=== PATIENT | female | born 1955 | race Caucasian/White ===

== ENCOUNTER → 2017-02-13 | Outpatient (CLI) | payer OTHER ==
--- NOTE | 2017-02-13 18:41 | WOMENS IMAGING REPORT ---
EXAM DESCRIPTION: BILAT SCREENING MAMMO W/CAD COMPLETED DATE/TIME: 02/13/2017 9:49 am REASON FOR STUDY: ROUTINE SCREENING; Z12.31 Z12.31 ENCNTR SCREEN MAMMOGRAM FOR MALIGNANT NEOPLASM O F MARK COMPARISON: None. TECHNIQUE: Standard craniocaudal and mediolateral oblique views of each breast recorded using digita l acquisition. LIMITATIONS: None. FINDINGS: No masses, calcifications or architectural distortion. No areas of suspicion. Read with the assistance of CAD. .[facility] - R2 Cenova Version 1.3 .[facility] - R2 Cenova Version 1.3 .[facility] - R2 Cenova Version 2.4 .[facility] - R2 Cenova Version 2.4 .[facility] - R2 Carbide Grinder Version 9.2 IMPRESSION: NORMAL MAMMOGRAM. BIRADS 1. BREAST DENSITY: b. There are scattered areas of fibroglandular density. BIRAD: 1 NEGATIVE RECOMMENDATION: ROUTINE SCREENING Please consider bilateral screening tomosynthesis in January 2018 COMMENT: The patient has been notified of the results by letter per MQSA requirements. Additional no tification policies are in place for contacting patient with suspicious or incomplete findings. Quality ID #[id number]: The [employer] recommends an annual screening mammogram for women aged 40 years or over. This facility utilizes a reminder system to ensure that all patients receive reminder letters, and/or direct phone calls for appointments. This includes reminders for routine scr eening mammograms, diagnostic mammograms, or other Breast Imaging Interventions when appropriate. Th is patient will be placed in the appropriate reminder system. The [employer] (A[employer]) has developed recommendations for screening MRI of the breast s in certain patient populations, to be used in conjunction with mammography. Breast MRI surveillanc e may be appropriate for women with more than 20% lifetime risk of developing breast cancer as deter mined by genetic testing, significant family history of the disease, or history of mantle radiation f or Hodgkins Disease. ACR Practice Guidelines 2008. TECHNICAL DOCUMENTATION: FINDING NUMBER: (1) ASSESSMENT: (1) JOB ID: [id number] [employer]- All Rights Reserved
== END ==
LOC: WI 09:33
PROVIDERS: ATTEND Family Medicine
DX: Z12.31 Encounter for screening mammogram for malignant neoplasm of breast (principal)
CPT/HCPCS: 77067; G0202

== ENCOUNTER 2017-05-12 16:51 | Emergency (ER) | payer OTHER ==
[2017-05-12] MEDS ORDERED: HYDROCODONE/ACETAMINOPHEN 5-325 MG TABLET PO ONE (18:33)
--- NOTE | 2017-05-12 18:37 | ER Document Report ---
ED Fall - General Chief Complaint: Fall Stated Complaint: FALL/LEFT ARM PAIN Time Seen by Provider: 05/12/17 18:25 Mode of Arrival: Ambulatory Information source: Patient TRAVEL OUTSIDE OF THE [place] IN LAST 30 DAYS: No - HPI Occurred: This afternoon Where: Outdoors Context: Tripped Associated symptoms: None Location of injury/pain: Back, Elbow, Wrist Quality of pain: Achy Severity: Moderate Notes: Patient arrives with complaints of left elbow and wrist pain as well as back pain status post fall. She states that she was walking she tripped over an uneven sidewalk causing her to fall. She states that she struck her head, denies any loss of consciousness. She denies headache. She denies being on blood thinners. Her biggest complaint is left elbow and left wrist pain. She denies any bowel or bladder dysfunction. No chest pain or shortness of breath. No nausea, vomiting, diarrhea. No abdominal pain. She denies any numbness or tingling. She denies any other injuries or other complaints at this time. - Related data Allergies/Adverse Reactions: Sulfa (Sulfonamide Antibiotics) Allergy (Unknown, Verified 05/12/17 16:54) Penicillins Allergy (Verified 05/12/17 16:54) Past Medical History - Social History Smoking Status: Unknown if Ever Smoked Family History: CAD, CVA, DM, Hyperlipidemia, Hypertension, Malignancy - Past Medical History Cardiac Medical History: Reports: Hx Hypercholesterolemia Neurological Medical History: Reports: Hx Migraine Endocrine Medical History: Reports: Hx Diabetes Mellitus Type 2 Musculoskeltal Medical History: Reports Hx Arthritis, Reports Hx Musculoskeletal Deformity, Reports Hx Musculoskeletal Trauma Traumatic Medical History: Reports: Hx Fractures - left ankle Past Surgical History: Reports: Hx Appendectomy, Hx Cholecystectomy, Hx Hysterectomy, Hx Orthopedic Surgery - left ankle left shoulder - Immunizations Immunizations up to date: Yes Hx Diphtheria, Pertussis, Tetanus Vaccination: Yes Hx Pneumococcal Vaccination: 04/24/11 Review of Systems - Review of Systems -: Yes All other systems reviewed and negative Physical Exam - Vital signs Vitals: Temp Pulse Resp BP Pulse Ox 97.8 F 106 H 18 158/77 H 97 05/12/17 17:37 05/12/17 17:37 05/12/17 17:37 05/12/17 17:37 05/12/17 17:37 - Notes Notes: GENERAL: alert, cooperative, nontoxic, no distress. HEAD: normocephalic, atraumatic EYES: conjunctiva pink without discharge, no external redness or swelling. PERRL , EOM'S INTACT EARS: no external swelling, no external redness. No hemotympanum EM NOSE: atraumatic, no external swelling. No bleeding MOUTH/THROAT: mucous membranes moist and pink, posterior pharynx without erythema, swelling, exudate. No trismus or drooling. NECK: soft, supple, full range of motion, no meningismus. No midline tenderness step-offs or crepitus to palpation of the cervical spine. CHEST: no distress, lungs clear and equal throughout. No wheezing, rales, rhonchi. CARDIAC: regular rate and rhythm, no murmur, normal capillary refill, normal pulses. No peripheral edema noted. ABDOMEN: Soft, nontender. No ecchymosis. BACK: full range of motion, no CVA tenderness. No midline tenderness step-offs or crepitus to palpation of the lumbar spine. Mild midline tenderness to palpation of the thoracic midline spine with no step-offs or crepitus. EXTREMITIES: Swelling and tenderness to the left elbow with limited flexion and extension secondary to pain and swelling. Tenderness and swelling to the left wrist with limited range of motion secondary to pain. Radial pulses normal. Capillary refill is normal. Normal sensation distally. Compartments are soft. Left shoulder exam is unremarkable. Abrasions noted to the left elbow. NEURO: alert and oriented x 3, no focal deficits, full range of motion of all extremities. Cranial nerves II through XII are grossly intact. Reflexes are normal bilaterally. Normal sensation bilaterally. Normal strength bilaterally. PYSCH: appropriate mood, affect. Patient is cooperative. SKIN: pink, warm, dry, no rash. Course - Re-evaluation Re-evalutation: 05/12/17 19:19 Patient is nontoxic appearing with stable vitals. The patient tripped and fell injuring her left wrist and elbow. She mildly struck her head, there was no loss of consciousness she is on no blood thinners and has a normal neurological exam. No CT imaging is required at this time. X-rays of her thoracic spine show no acute abnormality per the radiologist. X-rays of the left elbow and left wrist show an olecranon fracture as well as a comminuted impacted left distal radius fracture. Patient is neurovascularly intact. Compartments are soft. Patient will be placed in a long-arm posterior splint with a sling. She will be given a prescription for [place] with instructions to follow-up with OrthO sometime next week. She will instructed to follow-up sooner for increased pain, fever, numbness, tingling, weakness, any further concerns. The patient's emergency department workup and current diagnosis were explained to the patient and or family. Follow-up instructions were provided. Medications if prescribed were discussed. Instructions for when to return to the emergency department including specific worrisome symptoms were discussed with the patient and/or family. The patient is noted to have elevated blood pressure during today's emergency department visit. The patient was informed of this finding. The patient was instructed that this may be related to pre-hypertension and requires further evaluation with a primary care provider. The patient has no hypertensive symptoms at this time. - Vital Signs Vital signs: Temp Pulse Resp BP Pulse Ox 97.8 F 106 H 18 158/77 H 97 05/12/17 17:37 05/12/17 17:37 05/12/17 17:37 05/12/17 17:37 05/12/17 17:37 - Diagnostic Test Radiology reviewed: Image reviewed, Reports reviewed - Thoracic spine with no acute abnormality. Left elbow with olecranon fracture. Left wrist with comminuted impacted distal radius fracture. Procedures - Immobilization left arm Pre-Proc Neuro Vasc Exam: Normal Immobilizer type: Long arm posterior, Sling Performed by: PCT Post-Proc Neuro Vasc Exam: Normal Alignment checked and good: Yes Discharge - Discharge Clinical Impression: Fracture of olecranon process, left, closed Qualifiers: Encounter type: initial encounter Qualified Code(s): S52.022A - Displaced fracture of olecranon process without intraarticular extension of left ulna, initial encounter for closed fracture Closed fracture of distal end of left radius Qualifiers: Encounter type: initial encounter Fracture morphology: unspecified fracture morphology Qualified Code(s): S52.502A - Unspecified fracture of the lower end of left radius, initial encounter for closed fracture Condition: Stable Disposition: HOME, SELF-CARE Instructions: Fractured Radius ([facility]) Additional Instructions: Take medications as prescribed. Wear splint and use sling until follow-up with Ortho. Rest, ice, elevate your injury. Appointment with orthopedics at the next available appointment. Follow-up sooner for increased pain, fever, numbness, tingling, weakness, any further concerns. The medication you were prescribed today may cause drowsiness. Do not drive or operate heavy machinery while taking this medication. Your blood pressure was elevated during today's visit. Have this rechecked with your doctor. Prescriptions: Hydrocodone/Acetaminophen [[place] 5-325 mg Tablet] 2 tab PO Q6H PRN #25 tab PRN Reason: Forms: Elevated Blood Pressure, Smoking Cessation Education Referrals: WHITNEY JUNIOR DO [Primary Care Provider] - Follow up as needed DEANGELO JACOBSON MD [ACTIVE STAFF] - Follow up as needed
--- NOTE | 2017-05-12 19:00 | RADIOLOGY REPORT (SQ) ---
EXAM DESCRIPTION: T SPINE AP/LAT COMPLETED DATE/TIME: 05/12/2017 6:34 pm REASON FOR STUDY: fall, pain COMPARISON: None. NUMBER OF VIEWS: Two views. TECHNIQUE: AP and lateral radiographic images acquired of the thoracic spine. LIMITATIONS: None. FINDINGS: MINERALIZATION: Normal. ALIGNMENT: Normal. No scoliosis. VERTEBRAE: No fracture or bone lesion. Maintained height, normal segmentation. DISCS: Multilevel disc space narrowing with osteophytes. HARDWARE: None in the spine. MEDIASTINUM AND SOFT TISSUES: Normal heart size and aortic contour. No soft tissue abnormality. VISUALIZED LUNG CHAVARRIA: Clear. OTHER: No other significant finding. IMPRESSION: SPONDYLOSIS WITHOUT BONE LESION OR FRACTURE. TECHNICAL DOCUMENTATION: JOB ID: [id number] [employer]- All Rights Reserved
--- NOTE | 2017-05-12 19:01 | RADIOLOGY REPORT (SQ) ---
EXAM DESCRIPTION: WRIST LEFT 3 VIEWS COMPLETED DATE/TIME: 05/12/2017 6:54 pm REASON FOR STUDY: fall, pain COMPARISON: None. NUMBER OF VIEWS: Three views. TECHNIQUE: AP, lateral, and oblique radiographic images acquired of the left wrist. LIMITATIONS: None. FINDINGS: MINERALIZATION: Osteopenia. BONES: Comminuted intra-articular fracture of the distal radius with mild impaction and dorsal angula tion. Bones otherwise intact. SOFT TISSUES: No soft tissue swelling. No foreign body. OTHER: No other significant finding. IMPRESSION: INTRA-ARTICULAR DISTAL RADIAL FRACTURE ABOVE. TECHNICAL DOCUMENTATION: JOB ID: [id number] [employer]- All Rights Reserved
--- NOTE | 2017-05-12 19:02 | RADIOLOGY REPORT (SQ) ---
EXAM DESCRIPTION: ELBOW LEFT OVER 2 VIEWS COMPLETED DATE/TIME: 05/12/2017 6:54 pm REASON FOR STUDY: fall, pain COMPARISON: None. NUMBER OF VIEWS: Four views. TECHNIQUE: AP, lateral, and both oblique radiographic images acquired of the left elbow. LIMITATIONS: None. FINDINGS: MINERALIZATION: Osteopenia. BONES: Comminuted mildly displaced fracture of the olecranon. Bones otherwise appear to be intact JOINT: Joint effusion. SOFT TISSUES: Soft tissue swelling. OTHER: No other significant finding. IMPRESSION: OLECRANON FRACTURE WITH ASSOCIATED SOFT TISSUE SWELLING AND JOINT EFFUSION. TECHNICAL DOCUMENTATION: JOB ID: [id number] [employer]- All Rights Reserved
[2017-05-12 19:58] VITALS: BP 124/65
== END 2017-05-12 19:56 | disposition home or self-care (01) ==
LOC: ER 16:51
PROC: 2W39X1Z Immobilization of Left Upper Extremity using Splint (ICD-10-PCS; principal; 2017-05-12)
DX: S52.022A Displaced fracture of olecranon process without intraarticular extension of left ulna, initial encounter for closed fracture (principal); S52.502A Unspecified fracture of the lower end of left radius, initial encounter for closed fracture; W01.0XXA Fall on same level from slipping, tripping and stumbling without subsequent striking against object, initial encounter; Z88.2 Allergy status to sulfonamides; Z88.0 Allergy status to penicillin; E78.00 Pure hypercholesterolemia, unspecified; E11.9 Type 2 diabetes mellitus without complications; Z90.49 Acquired absence of other specified parts of digestive tract; Z90.710 Acquired absence of both cervix and uterus
CPT/HCPCS: 72070; 99283

== ENCOUNTER 2017-05-18 09:52 | Observation (INO) | payer OTHER ==
[2017-05-17 11:11] LABS: APPEARANCE,URINE CLEAR; BILIRUBIN,URINE NEGATIVE (NEGATIVE); COLOR,URINE STRAW; GLUCOSE, URINE >=500 mg/dL (NEGATIVE); KETONES,URINE NEGATIVE (NEGATIVE); LEUKOCYTE ESTERASE,URINE NEGATIVE (NEGATIVE); NITRITE,URINE NEGATIVE (NEGATIVE); PROTEIN,URINE NEGATIVE (NEGATIVE); URINE SPECIFIC GRAVITY 1.029; UROBILINOGEN,URINE NEGATIVE mg/dL (<2.0)
[2017-05-17 11:30] LABS: ABSOLUTE EOSINOPHILS # (AUTO) 0.1 10^3/uL (0.0-0.6); ABSOLUTE LYMPHOCYTES (AUTO) 1.3 10^3/uL (0.5-4.7); ABSOLUTE MONOCYTES (AUTO) 0.3 10^3/uL (0.1-1.4); ABSOLUTE NEUT (AUTO) 5.5 10^3/uL (1.7-8.2); BASOPHILS % (AUTO) 0.5 % (0-2); HEMATOCRIT 39.4 % (36.0-47.0); HEMOGLOBIN 12.8 g/dL (12.0-15.5); LYMPHOCYTES % (AUTO) 17.6 % (13-45); MEAN CORPUSCULAR HGB CONC 32.5 g/dL (32.0-36.0); MEAN CORPUSCULAR VOLUME 89 fl (80-97); PLATELET COUNT 344 10^3/uL (150-450); RED BLOOD COUNT 4.41 10^6/uL (3.72-5.28); RED CELL DISTRIBUTION WIDTH 15.3 % (11.5-14.0); SEGMENTED NEUTROPHILS % (AUTO) 75.9 % (42-78); TOTAL CELLS COUNTED % (AUTO) 100 %; WHITE BLOOD COUNT 7.3 10^3/uL (4.0-10.5)
[2017-05-17 11:49] LABS: ANION GAP 16 (5-19); BLOOD UREA NITROGEN 26 mg/dL (7-20); CALCIUM 9.8 mg/dL (8.4-10.2); CARBON DIOXIDE 23 mmol/L (22-30); CHLORIDE 102 mmol/L (98-107); GLUCOSE 349 mg/dL (75-110); POTASSIUM 4.7 mmol/L (3.6-5.0); SODIUM 141.1 mmol/L (137-145)
--- NOTE | 2017-05-17 12:18 | RADIOLOGY REPORT (SQ) ---
EXAM DESCRIPTION: CHEST PA/LATERAL COMPLETED DATE/TIME: 05/17/2017 11:38 am REASON FOR STUDY: PRE OP COMPARISON: 01/29/2009. EXAM PARAMETERS: NUMBER OF VIEWS: two views TECHNIQUE: Digital Frontal and Lateral radiographic views of the chest acquired. RADIATION DOSE: NA LIMITATIONS: none FINDINGS: LUNGS AND PLEURA: No opacities, masses or pneumothorax. No pleural effusion. MEDIASTINUM AND HILAR STRUCTURES: No masses or contour abnormalities. HEART AND VASCULAR STRUCTURES: Heart normal size. No evidence for failure. BONES: No acute findings. HARDWARE: None in the chest. OTHER: No other significant finding. IMPRESSION: NO SIGNIFICANT RADIOGRAPHIC FINDING IN THE CHEST. TECHNICAL DOCUMENTATION: JOB ID: [id number] [employer]- All Rights Reserved
[~2017-05-18 09:52] MED LIST: CLINDAMYCIN 600 MG/D5W RTU 600 MG/50 ML RTUPB IV PRN; LACTATED RINGERS 1000 ML IV PRN; LIDOCAINE 0.5% INJ-PF (5 MG/ML) 50 ML SDV SUBCUT PRN
--- NOTE | 2017-05-18 12:02 | EKG REPORT ---
SEVERITY:- NORMAL ECG - SINUS RHYTHM : Confirmed by: Casandra Butler 18-May-2017 12:01:43
[2017-05-18] MEDS ORDERED: MIDAZOLAM 2 MG/2 ML INJ ONE (12:10)
[2017-05-18] MEDS ORDERED: HYDROMORPHONE HCL INJ/PF 2 MG/ML AMPULE ONE (12:10)
[2017-05-18] MEDS ORDERED: PROPOFOL INJ 200 MG/20 ML VIAL IV ONE (12:11)
[2017-05-18] MEDS ORDERED: ONDANSETRON HCL INJ/PF 4 MG/2 ML SDV ONE ×2 (12:11→16:34)
[2017-05-18] MEDS ORDERED: ACETAMINOPHEN 100 ML IV ONE (12:11)
[2017-05-18] MEDS ORDERED: EPHEDRINE SULFATE INJ 50 MG/1 ML AMPULE ONE (12:11)
[2017-05-18] MEDS ORDERED: FAMOTIDINE INJ/PF 20 MG/2 ML SDV IV ONE ×2 (12:56→13:00)
[2017-05-18] MEDS ORDERED: SCOPOLAMINE HYDROBROMIDE 1.5 MG PATCH.TD72 ONE (12:56)
[2017-05-18] MEDS ORDERED: METOCLOPRAMIDE HCL INJ/PF 10 MG/2 ML SDV ONE (12:56)
[2017-05-18] MEDS ORDERED: METOCLOPRAMIDE HCL INJ/PF 10 MG/2 ML SDV IV ONE (13:00)
[2017-05-18] MEDS ORDERED: RINGERS SOLUTION,LACTATED 1,000 ML IV ONE (13:00)
[2017-05-18] MEDS ORDERED: SCOPOLAMINE HYDROBROMIDE 1.5 MG PATCH.TD72 TD ONE (13:00)
--- NOTE | 2017-05-18 15:59 | PDOC DISCHARGE SUMMARY ---
Discharge Summary (SDC) - Discharge Final Diagnosis: ORIF of the left olecranon fracture and left distal radius fracture Date of Surgery: 05/18/17 Discharge Date: 05/18/17 Condition: Good Treatment or Instructions: Keep the splint dry clean and intact. Wear sling for support. Ice and elevate left upper extremity. Follow-up in the office in 10-14 days. No lifting carrying or weightbearing. Prescriptions: Oxycodone HCl/Acetaminophen [Percocet 5-325 mg Tablet] 1 - 2 tab PO ASDIR PRN # 60 tablet PRN Reason: Referrals: WHITNEY JUNIOR DO [Primary Care Provider] - Discharge Diet: As Tolerated Respiratory Treatments at Home: Deep Breathing/Coughing Discharge Activity: No Driving, No Lifting/Push/Pulling Home Care Assistance: None Needed Report the Following to Your Physician Immediately: Shortness of Breath, Vomiting, Increase in Pain, Fever over 101 Degrees, Unusual Bleeding, Redness, Swelling, Warmth, Increased Soreness, Drainage-Yellow, Drainage-Maynard, Drainage- Green, Drainage-Foul Smelling
--- NOTE | 2017-05-18 16:06 | Operative Report ---
Operative Report DATE OF SURGERY: 05/18/17 PREOPERATIVE DIAGNOSIS: Left distal radius fracture. Left olecranon fracture POSTOPERATIVE DIAGNOSIS: Same OPERATION: ORIF of left olecranon fracture. ORIF of left distal radius fracture SURGEON: MARYURI MUIR ANESTHESIA: GA TISSUE REMOVED OR ALTERED: None COMPLICATIONS: None ESTIMATED BLOOD LOSS: Less than 20 mL INTRAOPERATIVE FINDINGS: As above PROCEDURE: After receiving her preoperative antibiotics the patient was brought to the operating room was induced and intubated in a supine position. The left upper extremity was prepped and draped in normal sterile surgical fashion. A sterile tourniquet was applied to left upper extremity. The left upper extremity was then exsanguinated with an Esmarch and the tourniquet was inflated at 250 mmHg. A standard volar approach of Chance to the distal radius was done first with a 15 blade and then dissecting exposing the FCR tendon. This was reflected and exposed the fascial tissue and released the fascial tissue. The pronator quadratus was then released radially and released off of the distal radius fragment. Fracture was exposed. Reduction was obtained and then plate was applied and with the C-arm was able to confirm size and the placement of the plate. This was held with K wires. I placed a compression screw in the oblong hole to secure the plate and adjusted it accordingly. I then was able then to place my compression screw the distal fragment. Once I was satisfied with the placement and fixation of the screw and the reduction I then proceeded to use the remaining holes distally to place locking screws. All screws were measured with depth gauge and confirmed with C-arm pictures. Make sure that the screws were proper length and were out of the joint. I placed my 2 other screws in the shaft and using the guide and drill and placing complete adequate length screws. Also satisfied with my distal radius fracture fixation I then proceeded to close the pronator quadratus with 0 Vicryl used both irrigation to clean the wound. I then proceeded to approximate this obtains fat with 0 Vicryl in the 3-0 Vicryl for the dermis and 3-0 nylon for the skin for the skin I used horizontal mattress stitches at 60 minutes of tourniquet was still had an hour to do a liquid and so we removed the hand table Sterility and then flex the elbow over her chest. A longitudinal incision over the olecranon and proximal ulna was done with a 15 blade. We able to do a sharp dissection onto the bone and reflected with a periosteal elevator. Fracture was exposed and hematoma was removed. I was able to reduce it with a reduction clamp over the plate. I placed a I drilled and placed a screw in the oblong hole on the distal fragment and confirmed it was C arm. I turned my attention then to place the homerun screw. I drilled and then measured 6 the 4 mm long screw. I ended up going with a 16 mm screw and with the x-rays confirm placement. The reduction also stayed intact. So then proceeded then to fill the remaining holes proximally and distally and measured appropriately. At all times I used C -arm to confirm length and proper placement and make sure that the reduction stayed intact. I placed the arm in range of motion showed no motion. Also satisfied with my fixation and I used both irrigation to clean the wound and then closed my incision with 0 Vicryl for the fascial tissue and then 3-0 Vicryl for the dermis. I used 3-0 nylon to do horizontal mattress stitches. The extremity was cleaned and then both incisions were covered with Xeroform 4 x 4 dressing and then overwrapped with soft roll. Tourniquet was let down at 118 minutes. We then placed a 4 inch Ortho-Glass long arm splint and secured it with an Larry bandage. We await into the splint had hardened about a 60 angle. The patient was placed in a sling. Drapes were removed and then patient was extubated and sent to PACU in stable condition.
[2017-05-18] MEDS: METOPROLOL TARTRATE PF/INJ 5 MG/5 ML SDV IV ONE ×2 (16:08→16:13)
[2017-05-18] MEDS ORDERED: METOPROLOL TARTRATE PF/INJ 5 MG/5 ML SDV IV ONE (16:12)
[2017-05-18] MEDS ORDERED: DILTIAZEM HCL INJ 25 MG/5 ML VIAL ONE ×2 (16:17→18:28)
[2017-05-18] MEDS ORDERED: DILTIAZEM HCL/D5W 125 MG/125 ML RTUINJ IV ONE (16:17)
[2017-05-18] MEDS: FENTANYL CITRATE INJ/PF 100 MCG/2 ML AMPUL ONE ×3 (16:23→17:24)
[2017-05-18] MEDS ORDERED: PROMETHAZINE HCL INJ 25 MG/1 ML VIAL ONE (16:34)
[2017-05-18] MEDS ORDERED: INSULIN LISPRO 100 UNIT/ML 3 ML VIAL ONE (16:36)
--- NOTE | 2017-05-18 16:38 | RADIOLOGY REPORT (SQ) ---
EXAM DESCRIPTION: NO CHG FLUORO; ELBOW LEFT AP/LATERAL COMPLETED DATE/TIME: 05/18/2017 3:45 pm REASON FOR STUDY: ORIF LEFT ELBOW ASST WITH FLUORO IN OR S52.022A DISP FX OF OLECRAN PRO W/O INTART IC EXTN LEFT ULNA, S52.532A COLLES' FRACTURE OF LEFT RADIUS, INIT FOR CLOS FX COMPARISON: 05/12/2017. FLUOROSCOPY TIME: 0.2 minutes. 3 images saved to PACS. TECHNIQUE: Intra-operative images acquired during surgical procedure to evaluate progress. NUMBER OF IMAGES: 3 images. LIMITATIONS: None. FINDINGS: Surgical fixation of the fracture of the olecranon with placement of hardware. IMPRESSION: IMAGE(S) OBTAINED DURING PROCEDURE. COMMENT: Quality ID [id number]: Final reports for procedures using fluoroscopy that document radiation exp osure indices, or exposure time and number of fluorographic images (if radiation exposure indices are not available) Please consult full operative report of the attending physician for description of the procedure. TECHNICAL DOCUMENTATION: JOB ID: [id number] [employer]- All Rights Reserved
--- NOTE | 2017-05-18 16:39 | RADIOLOGY REPORT (SQ) ---
EXAM DESCRIPTION: NO CHG FLUORO; WRIST LEFT 2 VIEWS COMPLETED DATE/TIME: 05/18/2017 3:45 pm REASON FOR STUDY: LT WRIST ORIF ASST WITH FLUORO IN OR S52.022A DISP FX OF OLECRAN PRO W/O INTARTIC EXTN LEFT ULNA, S52.532A COLLES' FRACTURE OF LEFT RADIUS, INIT FOR CLOS FX COMPARISON: 05/12/2017. FLUOROSCOPY TIME: 0.4 minutes. 3 images saved to PACS. TECHNIQUE: Intra-operative images acquired during surgical procedure to evaluate progress. NUMBER OF IMAGES: 3 images. LIMITATIONS: None. FINDINGS: Surgical fixation of the fracture of the distal radius with placement of hardware. IMPRESSION: IMAGE(S) OBTAINED DURING PROCEDURE. COMMENT: Quality ID [id number]: Final reports for procedures using fluoroscopy that document radiation exp osure indices, or exposure time and number of fluorographic images (if radiation exposure indices are not available) Please consult full operative report of the attending physician for description of the procedure. TECHNICAL DOCUMENTATION: JOB ID: [id number] [employer]- All Rights Reserved
[2017-05-18] MEDS ORDERED: LIDOCAINE 2%/EPINEPHRINE INJ 20 ML VIAL ONE ×2 (16:47→18:56)
[2017-05-18] MEDS ORDERED: ROPIVACAINE HCL 0.5% INJ/PF (5 MG/1 ML) 30 ML SDV ONE (16:47)
[2017-05-18] MEDS ORDERED: LIDOCAINE 2% INJ (20 MG/ML) 20 ML MDV ONE (16:47)
[2017-05-18 17:10] LABS: ALANINE AMINOTRANSFERASE 22 U/L (9-52); ALBUMIN 4.2 g/dL (3.5-5.0); ALKALINE PHOSPHATASE 100 U/L (38-126); ANION GAP 12 (5-19); ASPARTATE AMINO TRANSFERASE 29 U/L (14-36); BILIRUBIN,DIRECT 0.3 mg/dL (0.0-0.4); BILIRUBIN,TOTAL 0.5 mg/dL (0.2-1.3); BLOOD UREA NITROGEN 20 mg/dL (7-20); CALCIUM 10.1 mg/dL (8.4-10.2); CARBON DIOXIDE 22 mmol/L (22-30); CHLORIDE 106 mmol/L (98-107); CREATINE KINASE 75 U/L (30-135); GLUCOSE 363 mg/dL (75-110); MAGNESIUM 1.8 mg/dL (1.6-2.3); PHOSPHORUS 5.5 mg/dL (2.5-4.5); POTASSIUM 4.7 mmol/L (3.6-5.0); SODIUM 139.8 mmol/L (137-145); TOTAL PROTEIN 7.1 g/dL (6.3-8.2)
[2017-05-18 17:21] LABS: CREATINE KINASE MB 1.45 ng/mL (<4.55)
[2017-05-18 17:23] LABS: TROPONIN I < 0.012 ng/mL
[2017-05-18] MEDS ORDERED: DILTIAZEM HCL/D5W 125 MG/125 ML RTUINJ IV PRN (18:46)
--- NOTE | 2017-05-18 19:51 | PDOC CONSULTATION ---
Consultation Consult Date: 05/18/17 Attending physician:: BRIANNA LANCASTER Consult reason:: SVT History of Present Illness Admission Date/PCP: WHITNEY JUNIOR DO Patient complains of: Postop History of Present Illness: ORTIZ GUZMAN is a 61 year old female, who is status post orthopedic surgery on her left forearm, was noted to have episodes of tachycardia, narrow complex in immediate postop. Dr. Lancaster had called me to attend to this patient. Patient was noted to have narrow complex tachycardia at heart rate up to 190 bpm. She was also noted to be somewhat hypertensive. Patient had already received IV adenosine boluses without any effect except for transient slowing down of the heart rate. She called me and I advised Lopressor 5 mg IV every 5 minutes 3. Once this was given, it was noted that patient had underlying atrial fibrillation but she was trying to convert to sinus rhythm. Patient was subsequently given Cardizem bolus and drip. Patient was noted to be stable. Had advised patient to be subsequently admitted for overnight observation. Past Medical History Cardiac Medical History: Reports: Hyperlipidema Denies: Coronary Artery Disease, Myocardial Infarction, Hypertension Pulmonary Medical History: Denies: Asthma, Bronchitis, Chronic Obstructive Pulmonary Disease (COPD), Pneumonia Neurological Medical History: Reports: Migraine Denies: Seizures Endocrine Medical History: Reports: Diabetes Mellitus Type 2 Musculoskeltal Medical History: Reports: Arthritis Hematology: Denies: Anemia Past Surgical History Past Surgical History: Reports: Appendectomy, Cholecystectomy, Hysterectomy, Orthopedic Surgery - left ankle left shoulder Social History Information Source: [facility] Records Smoking Status: Former Smoker - Advance Directive Resuscitation Status: Full Code Surrogate healthcare decision maker:: Surrogate decision not identified. Family History Family History: CAD, CVA, DM, Hyperlipidemia, Hypertension, Malignancy Parental Family History Reviewed: Yes Children Family History Reviewed: Yes Sibling(s) Family History Reviewed.: Yes Medication/Allergy Home Medications: Metformin HCl [Glumetza] 1,000 mg PO BID 10/08/11 Pioglitazone HCl [Actos 30 mg Tablet] 45 mg PO DAILY 10/08/11 Glipizide [Glipizide ER] 5 mg PO DAILY 07/14/13 Glipizide [Glucotrol 10 mg Tablet] 10 mg PO QHS 07/14/13 Tramadol HCl [Ultram 50 mg Tablet] 50 mg PO ASDIR PRN #20 tablet 11/17/13 Hydrocodone/Acetaminophen [[place] 5-325 mg Tablet] 2 tab PO Q6H PRN #25 tab 05/12 Canagliflozin [Invokana] 300 mg PO DAILY 05/17/17 Oxycodone HCl/Acetaminophen [Percocet 5-325 mg Tablet] 1 - 2 tab PO ASDIR PRN # 60 tablet 05/18/17 Diltiazem HCl [Cardizem Cd 240 mg Capsule.cr] 240 mg PO DAILY #30 capsule.cr Allergies/Adverse Reactions: Sulfa (Sulfonamide Antibiotics) Allergy (Unknown, Verified 05/18/17 13:14) comatos Penicillins Allergy (Verified 05/18/17 13:14) throat selling aspirin Adverse Reaction (Verified 05/18/17 13:14) Urticaria, Irritability Review of Systems Review of Systems: Not available as patient is very drowsy and is postop. Physical Exam Vital Signs: Temp Pulse Resp BP Pulse Ox 98.8 F 60 16 159/86 H 100 05/18/17 12:30 05/18/17 12:30 05/18/17 12:30 05/18/17 12:30 05/18/17 12:30 Intake & Output 05/17/17 05/18/17 05/19/17 06:59 06:59 06:59 Intake Total 240 Output Total 240 Balance 0 Weight 99.79 kg 99.79 kg Exam: GENERAL: well-nourished and in no acute distress. Alert, easily awakened and answers appropriately seems oriented. HEAD: Atraumatic, normocephalic. EYES: Pupils equal round and reactive to light, extraocular movements intact, sclera anicteric, conjunctiva are normal. ENT: TMs normal, nares patent, oropharynx clear without exudates. Moist mucous membranes. No oral ulcerations or bleeding gums noted NECK: supple without lymphadenopathy. Trachea is central. No cervical or axillary lymphadenopathy noted. Carotids are 2+, JVD WNL LUNGS: Respiration seems nonlabored, no significant accessory muscle action noted. Breath sounds clear to auscultation bilaterally and equal noted. No wheezes rales or rhonchi noted. No significant dullness noted on percussion. CHEST: Palpation of the chest wall shows no significant chest wall tenderness. No other significant abnormalities noted. 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 ABDOMEN: Soft, no significant tenderness appreciated, normoactive bowel sounds. No guarding, no rebound. No rigidity noted . No masses appreciated. EXTREMITIES: Pedal pulses are 1-2+, no calf tenderness noted. No clubbing or cyanosis.trace to 1+ pedal edema noted NEUROLOGICAL: Focused neurological exam showed no significant neurologic deficit. Normal speech, no focal weakness appreciated. PSYCH: Psych exam was not performed but patient noted to have normal mood and affect. SKIN: No significant ecchymosis, rash, ulcerations or signs of pruritus noted. MUSCULOSKELETAL EXAM: No significant joint swelling noted. Postsurgical changes noted in the left forearm. Results Laboratory Results: 05/17/17 11:05 05/18/17 16:45 05/18/17 16:45 Sodium 139.8 Potassium 4.7 Chloride 106 Carbon Dioxide 22 Anion Gap 12 BUN 20 Creatinine 0.82 Est GFR ( Amer) > 60 Est GFR (Non-Af Amer) > 60 Glucose 363 H Calcium 10.1 Phosphorus 5.5 H Magnesium 1.8 Total Bilirubin 0.5 AST 29 ALT 22 Alkaline Phosphatase 100 Total Protein 7.1 Albumin 4.2 05/18/17 05/18/17 16:45 16:45 Creatine Kinase 75 CK-MB (CK-2) 1.45 Troponin I < 0.012 EKG Comments: Preop EKG shows sinus rhythm with mild sinus tachycardia but no acute ST-T wave changes noted. A post op EKG was performed after intervention of IV beta- blockers showed sinus rhythm. No acute ST-T wave changes noted. Rhythm strips showed atrial fibrillation with rapid ventricular response. Impressions: Chest X-Ray 05/17/17 11:21 IMPRESSION: NO SIGNIFICANT RADIOGRAPHIC FINDING IN THE CHEST. Elbow X-Ray 05/18/17 00:00 IMPRESSION: IMAGE(S) OBTAINED DURING PROCEDURE. Fluoroscopy 05/18/17 00:00 IMPRESSION: IMAGE(S) OBTAINED DURING PROCEDURE. Wrist X-Ray 05/18/17 00:00 IMPRESSION: IMAGE(S) OBTAINED DURING PROCEDURE. 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: unspecified termite control servicer insulin use status Qualified Code(s): E11.9 - Type 2 diabetes mellitus without complications Is this a current diagnosis for this admission?: Yes (4) Obesity Qualifiers: Obesity type: unspecified obesity type Is this a current diagnosis for this admission?: Yes (5) Closed fracture of distal end of left radius Qualifiers: Encounter type: initial encounter Fracture morphology: unspecified fracture morphology Qualified Code(s): S52.502A - Unspecified fracture of the lower end of left radius, initial encounter for closed fracture (6) Fracture of olecranon process, left, closed Qualifiers: Encounter type: initial encounter Qualified Code(s): S52.022A - Displaced fracture of olecranon process without intraarticular extension of left ulna, initial encounter for closed fracture - Notes Notes: Paroxysmal atrial fibrillation: This happened in the postop setting. Patient however at risk for further spells in view of obesity, diabetes and hypertension. At this point recommend Cardizem bolus and drip protocol. Patient would benefit from being discharged on some dose of Cardizem. Patient will benefit from cardiology follow-up which I will be happy to provide. Hypertension: Patient was noted to have postop hypertension. Hopefully this will be controlled with IV Cardizem. If not, consider IV labetalol. Diabetes: Recommend good control of diabetes. Fracture of forearm bones. Continue current management plans. - Time Time Spent: 30 to 50 Minutes - I was at bedside, during postop, till patient was stabilized. Will be happy to follow patient. Patient will benefit from a event monitor as an outpatient which can be arranged through my office. She will also benefit from a 2D echocardiogram that can be arranged from my office. Medications reviewed and adjusted accordingly: Yes
[2017-05-18] MEDS ORDERED: ONDANSETRON HCL INJ/PF 4 MG/2 ML SDV IV PRN (21:22)
[2017-05-18] MEDS ORDERED: OXYCODONE-ACETAMINOPHEN 5-325 MG TABLET PO PRN (21:58)
[2017-05-18] MEDS ORDERED: INSULIN REG, HUMAN 100 UNIT/ML 3 ML VIAL SUBCUT PRN (22:01)
[2017-05-18] MEDS ORDERED: ADENOSINE INJ/PF 6 MG/2 ML SDV IV ONE (22:40)
[2017-05-18] MEDS: MORPHINE SULFATE 10 MG/ML INJ IV PRN (23:16)
[2017-05-18] MEDS: INSULIN REG, HUMAN 100 UNIT/ML 3 ML VIAL (PYX) SUBCUT PRN (23:16)
[2017-05-19] MEDS: OXYCODONE-ACETAMINOPHEN 5-325 MG TABLET PO PRN ×5 (01:47→18:03)
[2017-05-19] MEDS ORDERED: DILTIAZEM HCL INJ 25 MG/5 ML VIAL ONE (03:18)
[2017-05-19] MEDS: MORPHINE SULFATE 10 MG/ML INJ IV PRN ×3 (03:39→16:15)
--- NOTE | 2017-05-19 07:40 | EKG REPORT ---
SEVERITY:- NORMAL ECG - SINUS RHYTHM : Confirmed by: Ashley Casas MD 19-May-2017 07:39:49
[2017-05-19] MEDS: METFORMIN HCL 500 MG TABLET PO SCH ×2 (08:22→18:03)
[2017-05-19] MEDS: INSULIN REG, HUMAN 100 UNIT/ML 3 ML VIAL (PYX) SUBCUT PRN (08:23)
[2017-05-19] MEDS ORDERED: GLIPIZIDE 10 MG TABLET PO SCH ×2 (10:00→18:00)
[2017-05-19] MEDS ORDERED: GLIPIZIDE XL 5 MG TAB.ER.24 PO SCH (10:00)
[2017-05-19] MEDS ORDERED: (PENDING PHARMACY ID) (Canagliflozin [Invokana] 300 MG) PO SCH (10:00)
[2017-05-19] MEDS ORDERED: PIOGLITAZONE HCL 30 MG TABLET PO SCH (10:00)
[2017-05-19] MEDS ORDERED: DILTIAZEM HCL 240 MG CAPSULE.CR PO ONE (12:00)
[2017-05-19 17:57] VITALS: BP 138/54
[2017-05-20] MEDS ORDERED: DILTIAZEM HCL 240 MG CAPSULE.CR PO SCH (10:00)
--- NOTE | 2017-05-20 15:36 | PDOC PROGRESS REPORT ---
Subjective Progress Note for:: 05/19/17 Subjective:: Patient seems to be doing better. There has been no recurrence of atrial fibrillation. On questioning patient did admit to having transient fluttering in the chest in the past. Pt is denying any chest arm or neck discomfort. Patient denying any PND, orthopnea. Patient denied any sustained palpitations, dizziness, syncope, near syncope. Patient denying any fever chills. Patient denying any other significant discomfort. There is no prior history of strokes or mini strokes. Patient did not have cardiac evaluations before. Patient is maintaining sinus rhythm. Review of systems: Rest review of systems negative. Medications: Medications have been reviewed. Reason For Visit: HEART RATE BP Physical Exam Vital Signs: Temp Pulse Resp BP Pulse Ox 97.8 F 90 20 138/54 H 94 05/19/17 08:00 05/19/17 08:00 05/19/17 08:00 05/19/17 08:00 05/19/17 08:00 Intake & Output 05/18/17 05/19/17 05/20/17 06:59 06:59 06:59 Intake Total 2650 Output Total 260 Balance 2390 Weight 99.79 kg 106.5 kg Exam: GENERAL: well-nourished and in no acute distress. Alert and oriented x3 HEAD: Atraumatic, normocephalic. EYES: Pupils equal round and reactive to light, extraocular movements intact, sclera anicteric, conjunctiva are normal. ENT: TMs normal, nares patent, oropharynx clear without exudates. Moist mucous membranes. No oral ulcerations or bleeding gums noted NECK: supple without lymphadenopathy. Trachea is central. No cervical or axillary lymphadenopathy noted. Carotids are 2+, JVD WNL LUNGS: Respiration seems nonlabored, no significant accessory muscle action noted. Breath sounds clear to auscultation bilaterally and equal noted. No wheezes rales or rhonchi noted. No significant dullness noted on percussion. CHEST: Palpation of the chest wall shows no significant chest wall tenderness. No other significant abnormalities noted. 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 ABDOMEN: Soft, no significant tenderness appreciated, normoactive bowel sounds. No guarding, no rebound. No rigidity noted . No masses appreciated. EXTREMITIES: Pedal pulses are 1-2+, no calf tenderness noted. No clubbing or cyanosis.trace to 1+ pedal edema noted NEUROLOGICAL: Focused neurological exam showed no significant neurologic deficit. Normal speech, no focal weakness appreciated. PSYCH: Normal mood, normal affect. Judgment and insight within normal limits. SKIN: No significant ecchymosis, rash, ulcerations or signs of pruritus noted. MUSCULOSKELETAL EXAM: No significant joint swelling noted. Left arm in cast from recent surgery Results Laboratory Results: 05/17/17 11:05 05/18/17 16:45 05/18/17 16:45 Sodium 139.8 Potassium 4.7 Chloride 106 Carbon Dioxide 22 Anion Gap 12 BUN 20 Creatinine 0.82 Est GFR ( Amer) > 60 Est GFR (Non-Af Amer) > 60 Glucose 363 H Calcium 10.1 Phosphorus 5.5 H Magnesium 1.8 Total Bilirubin 0.5 AST 29 ALT 22 Alkaline Phosphatase 100 Total Protein 7.1 Albumin 4.2 05/18/17 05/18/17 05/18/17 16:45 16:45 22:50 Creatine Kinase 75 CK-MB (CK-2) 1.45 Troponin I < 0.012 0.015 05/19/17 04:50 Creatine Kinase CK-MB (CK-2) Troponin I < 0.012 Impressions: Chest X-Ray 05/17/17 11:21 IMPRESSION: NO SIGNIFICANT RADIOGRAPHIC FINDING IN THE CHEST. Elbow X-Ray 05/18/17 00:00 IMPRESSION: IMAGE(S) OBTAINED DURING PROCEDURE. Fluoroscopy 05/18/17 00:00 IMPRESSION: IMAGE(S) OBTAINED DURING PROCEDURE. Wrist X-Ray 05/18/17 00:00 IMPRESSION: IMAGE(S) OBTAINED DURING PROCEDURE. 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 insulin use: unspecified terminal operations supervisor insulin use status Qualified Code(s): E11.9 - Type 2 diabetes mellitus without complications Is this a current diagnosis for this admission?: Yes (4) Obesity Qualifiers: Obesity type: unspecified obesity type Is this a current diagnosis for this admission?: Yes (5) Closed fracture of distal end of left radius Qualifiers: Encounter type: initial encounter Fracture morphology: unspecified fracture morphology Qualified Code(s): S52.502A - Unspecified fracture of the lower end of left radius, initial encounter for closed fracture (6) Fracture of olecranon process, left, closed Qualifiers: Encounter type: initial encounter Qualified Code(s): S52.022A - Displaced fracture of olecranon process without intraarticular extension of left ulna, initial encounter for closed fracture (7) Sleep apnea syndrome Qualifiers: Sleep apnea type: unspecified type Qualified Code(s): G47.30 - Sleep apnea , unspecified Is this a current diagnosis for this admission?: No - Notes Notes: Paroxysmal atrial fibrillation: This happened in the postop setting. Patient however at risk for further spells in view of obesity, diabetes and hypertension. Patient has maintained sinus rhythm since she has been on the floor. Will give patient Cardizem CD 240 mg p.o now and daily. Patient will benefit from cardiology follow-up which I will be happy to provide. Hypertension: Patient was noted to have postop hypertension. Hopefully this will be controlled with po Cardizem. SAMMIE inhibitors/ARB can also be added if needed. Diabetes: Recommend good control of diabetes. Fracture of forearm bones. Continue current management plans. Sleep apnea syndrome: This is strongly suspected. Advised patient to be tested for it either with me or any other specialist. - Time Time with patient: Greater than 35 minutes - More than 50% of the time spent coordinating care, discussing management plans with involved caregivers. Management plans discussed with involved personnels. Medical decision making was of moderate to high complexity, patient's has multiple comorbidities. Risk associated with atrial fibrillation and sleep apnea syndrome discussed in detail with the patient. Questions were answered. Discussed with nurse that patient should be discharged with prescription of Cardizem and she can follow- up with me. Medications reviewed and adjusted accordingly: Yes
== END 2017-05-19 18:28 | disposition home or self-care (01) ==
LOC: 3W 12:01 → OROUT 12:01 → EDSTATUS 14:00 → 3W 20:29 → OROUT 20:29 → 3W 05-19 18:28
PROVIDERS: ADMIT Orthopaedic Surgery; ATTEND Orthopaedic Surgery
PROC: 0PSJ04Z Reposition Left Radius with Internal Fixation Device, Open Approach (ICD-10-PCS; 2017-05-18)
PROC: 0PSL04Z Reposition Left Ulna with Internal Fixation Device, Open Approach (ICD-10-PCS; principal; 2017-05-18 14:00)
DX: I97.89 Other postprocedural complications and disorders of the circulatory system, not elsewhere classified (principal); I48.0 Paroxysmal atrial fibrillation; Y83.8 Other surgical procedures as the cause of abnormal reaction of the patient, or of later complication, without mention of misadventure at the time of the procedure; I10 Essential (primary) hypertension; E11.9 Type 2 diabetes mellitus without complications; S52.502A Unspecified fracture of the lower end of left radius, initial encounter for closed fracture; S52.022A Displaced fracture of olecranon process without intraarticular extension of left ulna, initial encounter for closed fracture; W19.XXXA Unspecified fall, initial encounter; E66.9 Obesity, unspecified; M06.9 Rheumatoid arthritis, unspecified; Z90.49 Acquired absence of other specified parts of digestive tract; Z98.890 Other specified postprocedural states; Z87.891 Personal history of nicotine dependence; Z82.49 Family history of ischemic heart disease and other diseases of the circulatory system; Z79.84 Long term (current) use of oral hypoglycemic drugs; Z68.35 Body mass index [BMI] 35.0-35.9, adult; Z91.048 Other nonmedicinal substance allergy status
CPT/HCPCS: 93005 ×2; 36415 ×2; 82553; 82962; 82550; 83735; 84100; 85025; 80048; 80053; 81001; 84484; 83036; 71046; 73070; 73100; 93010 ×2; 24685; 25607; G0378 ×2; C1713 ×6; J2795; J2250; J3490 ×8; J3010; J1815 ×3; J2765; J2270 ×2; J1170; J2550; J2405; J0153; J2704; S0028; J0131; 01740

== ENCOUNTER → 2017-10-17 | Outpatient (CLI) | payer OTHER ==
--- NOTE | 2017-10-17 14:17 | WOMENS IMAGING REPORT ---
EXAM DESCRIPTION: BONE DENSITY HIP/SPINE COMPLETED DATE/TIME: 10/17/2017 1:29 pm REASON FOR STUDY: OSTEOPOROSIS M81.8 OTHER OSTEOPOROSIS WITHOUT CURRENT PATHOLOGICAL FRACTU COMPARISON: None. TECHNIQUE: Dual-Energy X-ray Absorptiometry (DEXA) of the AP Spine and Hip. LIMITATIONS: None. FINDINGS: LUMBAR SPINE: The bone mineral density (BMD) measured from L1-L4 in the AP projection correlates with a T-score of -1.4, which is osteopenia as defined by the World Health Organization. HIP: The bone mineral density (BMD) measured in the left hip correlates with a T-score of -2.5, which is o steoporosis as defined by the World Health Organization. IMPRESSION: 1. LUMBAR SPINE: OSTEOPENIA. 2. HIP: OSTEOPOROSIS. COMMENT: The World Health Organization defines low BMD as follows: T-score: Normal: Greater than -1.0 Osteopenia: Between -1.0 and -2.5 Osteoporosis: Less than -2.5 without fractures Established osteoporosis: Less than -2.5 with fractures In general, you may wish to consider: Diagnosis Treatment Follow-up DEXA Normal BMD Prevention 2-3 years Osteopenia Prevention/Therapy 1-2 years Osteoporosis Therapy Yearly TECHNICAL DOCUMENTATION: JOB ID: [id number] [employer]- All Rights Reserved Reading location - IP/workstation name: [email or web address]
== END ==
LOC: WI 13:06
PROVIDERS: ATTEND Family Medicine
DX: M81.8 Other osteoporosis without current pathological fracture (principal)
CPT/HCPCS: 77080

== ENCOUNTER → 2018-04-28 | Outpatient (CLI) | payer OTHER ==
--- NOTE | 2018-04-28 10:03 | RADIOLOGY REPORT (SQ) ---
EXAM DESCRIPTION: CT RT UPPER EXTREMITY WITHOUT COMPLETED DATE/TIME: 04/28/2018 9:31 am REASON FOR STUDY: PAIN IN RIGHT WRIST M25.531 PAIN IN RIGHT WRIST COMPARISON: None. TECHNIQUE: Axial imaging performed through the right wrist with reformatted coronal and sagittal phillip ging windowed for bone and soft tissues. Images saved to PACS. 3D IMAGING: Were 3D images as MIP, SSD, or volume rendering performed at the work station? Yes All CT scanners at this facility use dose modulation, iterative reconstruction, and/or weight based d osing when appropriate to reduce radiation dose to as low as reasonably achievable (ALARA). [facility]: Dose Right [facility]: CareDose [facility]: Dose Right [facility]: Teradose 4D [facility]: Smart Technologies LIMITATIONS: None. RADIATION DOSE: 183.7mGy. FINDINGS: SOFT TISSUES: Minimal soft tissue swelling noted. BONES: There is evidence of a comminuted impacted intra-articular fracture distal radius and radial s tyloid with displacement of fracture fragments dorsally. There are few small avulsion fractures kaz cent to the carpal navicular. There is widening of the scapholunate interval measuring 4 mm. The po ssibility of ligamentous injury is not excluded. No abnormality of the distal ulnar. No additional fractures seen. MINERALIZATION: Normal. IMPRESSION: Comminuted impacted intra-articular fracture distal right radius with dorsal displacemen t of distal fracture fragments. Findings suggesting scapholunate ligamentous injury . TECHNICAL DOCUMENTATION: JOB ID: [id number] Quality ID # [id number]: Final reports with documentation of one or more dose reduction techniques (e.g., Au tomated exposure control, adjustment of the mA and/or kV according to patient size, use of iterative reconstruction technique) 2010 [employer]- All Rights Reserved Reading location - IP/workstation name: [email or web address]
== END ==
LOC: RAD 09:00
PROVIDERS: ATTEND Physician Assistant
DX: M25.531 Pain in right wrist (principal); S52.571A Other intraarticular fracture of lower end of right radius, initial encounter for closed fracture; X58.XXXA Exposure to other specified factors, initial encounter

== ENCOUNTER → 2018-05-01 | Outpatient (CLI) | payer OTHER ==
[2018-05-01 12:34] LABS: ALANINE AMINOTRANSFERASE 8 U/L (9-52); ALBUMIN 4.2 g/dL (3.5-5.0); ALKALINE PHOSPHATASE 98 U/L (38-126); ANION GAP 10 (5-19); ASPARTATE AMINO TRANSFERASE 17 U/L (14-36); BILIRUBIN,DIRECT 0.2 mg/dL (0.0-0.4); BILIRUBIN,TOTAL 0.5 mg/dL (0.2-1.3); BLOOD UREA NITROGEN 20 mg/dL (7-20); CARBON DIOXIDE 26 mmol/L (22-30); CHLORIDE 104 mmol/L (98-107); CHOLESTEROL 137.71 mg/dL (0-200); GLUCOSE 278 mg/dL (75-110); POTASSIUM 5.1 mmol/L (3.6-5.0); SODIUM 139.5 mmol/L (137-145); TOTAL PROTEIN 7.3 g/dL (6.3-8.2); TRIGLYCERIDES 141 mg/dL (<150)
[2018-05-01 12:44] LABS: DIRECT LDL 63 mg/dL (<100)
== END ==
LOC: LAB 12:02
PROVIDERS: ATTEND Family Medicine
DX: E11.9 Type 2 diabetes mellitus without complications (principal); I10 Essential (primary) hypertension; I48.0 Paroxysmal atrial fibrillation
CPT/HCPCS: 36415; 80053; 80061; 83036

== ENCOUNTER → 2018-05-18 | Outpatient (CLI) | payer OTHER ==
--- NOTE | 2018-05-18 16:15 | WOMENS IMAGING REPORT ---
EXAM DESCRIPTION: BILAT SCREENING MAMMO W/CAD COMPLETED DATE/TIME: 05/18/2018 4:00 pm REASON FOR STUDY: ROUTINE BILATERAL SCREENING,Z12.31 Z12.31 ENCNTR SCREEN MAMMOGRAM FOR MALIGNANT N EOPLASM OF MARK COMPARISON: 2016 TECHNIQUE: Standard craniocaudal and mediolateral oblique views of each breast recorded using [place] l acquisition. LIMITATIONS: None. FINDINGS: No masses, calcifications or architectural distortion. No areas of suspicion. Read with the assistance of CAD. .[facility] - R2 Cenova Version 1.3 .[facility] - R2 Cenova Version 1.3 .[facility] - R2 Cenova Version 2.4 .[facility] - R2 Cenova Version 2.4 .[facility] - R2 Ceramic Tile Mechanic Version 9.2 IMPRESSION: NORMAL MAMMOGRAM. BIRADS 1. BREAST DENSITY: b. There are scattered areas of fibroglandular density. BIRAD: 1 NEGATIVE RECOMMENDATION: ROUTINE SCREENING COMMENT: The patient has been notified of the results by letter per SA requirements. Additional no tification policies are in place for contacting patient with suspicious or incomplete findings. Quality ID #[id number]: The [employer] recommends an annual screening mammogram for women aged 40 years or over. This facility utilizes a reminder system to ensure that all patients receive reminder letters, and/or direct phone calls for appointments. This includes reminders for routine scr eening mammograms, diagnostic mammograms, or other Breast Imaging Interventions when appropriate. Th is patient will be placed in the appropriate reminder system. The [employer] (ACR) has developed recommendations for screening MRI of the breast s in certain patient populations, to be used in conjunction with mammography. Breast MRI surveillanc e may be appropriate for women with more than 20% lifetime risk of developing breast cancer as deter mined by genetic testing, significant family history of the disease, or history of mantle radiation f or Hodgkins Disease. ACR Practice Guidelines 2008. TECHNICAL DOCUMENTATION: FINDING NUMBER: (1) ASSESSMENT: (1) JOB ID: [id number] [employer]- All Rights Reserved Reading location - IP/workstation name: [email or web address]
[2018-05-18 16:41] LABS: FREE T4 (FREE THYROXINE) 1.14 ng/dL (0.78-2.19)
[2018-05-18 16:56] LABS: THYROID STIMULATING HORMONE 2.31 uIU/mL (0.47-4.68)
== END ==
LOC: WI 15:42
PROVIDERS: ATTEND Family Medicine
DX: Z12.31 Encounter for screening mammogram for malignant neoplasm of breast (principal); R79.89 Other specified abnormal findings of blood chemistry
CPT/HCPCS: 36415; 77067; 84439; 84443

== ENCOUNTER 2018-06-05 20:44 | Emergency (ER) | payer OTHER ==
--- NOTE | 2018-06-05 21:43 | RADIOLOGY REPORT (SQ) ---
EXAM DESCRIPTION: XR FOOT 3 OR MORE VIEWS COMPLETED DATE/TME: 06/05/2018 00:00 CLINICAL HISTORY: 62 years, Female, Injury to R foot. Andrews a "pop". Painful COMPARISON: None. NUMBER OF VIEWS: TECHNIQUE: LIMITATIONS: None. FINDINGS: No fracture or dislocation. There are calcaneal spurs. There is possible osteoporosis. IMPRESSION: No fracture or dislocation. Other findings as described. copyright 2010 [employer]- All Rights Reserved
--- NOTE | 2018-06-05 23:43 | ER Document Report ---
HPI - HPI Patient complains to provider of: Right ankle injury Time Seen by Provider: 06/05/18 23:30 Pain Level: 4 Context: Patient is a 62-year-old female that comes to the emergency department for chief complaint of right ankle injury. She states she stepped on a metal slab on the ground while wearing her tennis shoes and she felt a sharp pop and pain. She completed her work shift afterwards. There is some soft tissue swelling on the lateral side and towards the bottom of the foot. She denies any other injuries or any other complaints. - REPRODUCTIVE Reproductive: DENIES: : - MUSCULOSKELETAL Musculoskeletal: REPORTS: Extremity pain - right ankle Past Medical History - General Information source: Patient - Social History Smoking Status: Never Smoker Chew tobacco use (# tins/day): No Frequency of alcohol use: None Drug Abuse: None Lives with: Family Family History: CAD, CVA, DM, Hyperlipidemia, Hypertension, Malignancy Patient has suicidal ideation: No Patient has homicidal ideation: No - Past Medical History Cardiac Medical History: Reports: Hx Hypercholesterolemia Denies: Hx Coronary Artery Disease, Hx Heart Attack, Hx Hypertension Pulmonary Medical History: Denies: Hx Asthma, Hx Bronchitis, Hx COPD, Hx Pneumonia Neurological Medical History: Reports: Hx Migraine. Denies: Hx Cerebrovascular Accident, Hx Seizures Endocrine Medical History: Reports: Hx Diabetes Mellitus Type 2 Renal/ Medical History: Denies: Hx Peritoneal Dialysis Musculoskeletal Medical History: Reports Hx Arthritis, Reports Hx Musculoskeletal Deformity, Reports Hx Musculoskeletal Trauma Traumatic Medical History: Reports: Hx Fractures - left ankle Past Surgical History: Reports: Hx Appendectomy, Hx Cholecystectomy, Hx Hysterectomy, Hx Orthopedic Surgery - left ankle left shoulder, left wrist, left elbow - Immunizations Immunizations up to date: Yes Hx Diphtheria, Pertussis, Tetanus Vaccination: Yes Hx Pneumococcal Vaccination: 04/24/11 Vertical Provider Document - CONSTITUTIONAL General Appearance: WD/WN, No Apparent Distress - INFECTION CONTROL TRAVEL OUTSIDE OF THE [place] IN LAST 30 DAYS: No - HEENT HEENT: Atraumatic, Normocephalic - NECK Neck: Normal Inspection - RESPIRATORY Respiratory: Breath Sounds Normal, No Respiratory Distress - CARDIOVASCULAR Cardiovascular: Regular Rate, Regular Rhythm - GI/ABDOMEN Gastrointestinal: Abdomen Soft, Abdomen Non-Tender - BACK Back: Normal Inspection - MUSCULOSKELETAL/EXTREMETIES Musculoskeletal/Extremeties: MAEW, FROM, Tender - Tender over the lateral aspect of the foot dorsally and extending over to the side and almost bottom of the foot and extending up to near the lateral malleolus. Minimal soft tissue swelling noted. Normal dorsalis pedis, capillary refill, sensation. Range of motion of the ankle and toes intact. No wounds noted. Unremarkable exam otherwise. Course - Re-evaluation Re-evalutation: X-ray showing calcaneal spurring, osteopenia, otherwise unremarkable. No fracture. Exam consistent with sprain. No additional concerning findings, no evidence of compartment syndrome. No foreign body. No wound. Discussed results with patient. Patient requesting immobilization, time off for the sprain. This was provided. Provided report, patient has an orthopedic surgeon she sees already in [place]. Discussed follow-up and return precautions. Patient states understanding and agreement. - Vital Signs Vital signs: Temp Pulse Resp BP Pulse Ox 98.5 F 96 14 133/72 H 97 06/05/18 20:54 06/05/18 20:54 06/05/18 20:54 06/05/18 20:54 06/05/18 20:54 Procedures - Immobilization right ankle Immobilizer type: Larry wrap, Ankle stirrup Performed by: ELSIE Post-Proc Neuro Vasc Exam: Normal Alignment checked and good: Yes Discharge - Discharge Clinical Impression: Right foot pain Right ankle pain Qualifiers: Chronicity: acute Qualified Code(s): M25.571 - Pain in right ankle and joints of right foot Foot injury Qualifiers: Encounter type: initial encounter Laterality: right Qualified Code(s): S99.921A - Unspecified injury of right foot, initial encounter Condition: Stable Disposition: HOME, SELF-CARE Additional Instructions: The x-ray shows calcaneal spurs and possible osteoporosis but no fracture or concerning findings were seen. Your evaluation is consistent with a ligament sprain causing soft tissue swelling and pain. I recommend you elevate, ice 3-4 times a day, take an anti-inflammatory, and rest the foot. For the first 2-3 days I do recommend using the immobilization and crutch to hasten recovery. Follow-up with your orthopedics provider for additional evaluation and management. Return if you worsen including severe swelling and pain. Prescriptions: Naproxen [Naprosyn 250 mg Tablet] 250 mg PO BID PRN #14 tablet PRN Reason: Forms: Return to Work Referrals: SANDI,WHITNEY, DO [Primary Care Provider] - Follow up as needed
[2018-06-06 00:40] VITALS: BP 139/57
== END 2018-06-06 00:40 | disposition home or self-care (01) ==
LOC: ER 20:44
DX: S90.821A Blister (nonthermal), right foot, initial encounter (principal); X58.XXXA Exposure to other specified factors, initial encounter; E11.9 Type 2 diabetes mellitus without complications
CPT/HCPCS: 99283; 73630; L1902

== ENCOUNTER 2018-06-07 21:42 | Emergency (ER) | payer OTHER ==
[2018-06-07 22:54] VITALS: BP 134/60
--- NOTE | 2018-06-08 00:12 | ER Document Report ---
HPI - HPI Time Seen by Provider: 06/07/18 23:15 Pain Level: 3 Notes: Patient is a 62-year-old female who presents to the emergency department with complaints of a blister dorsal surface of her left foot. She states this just appeared there a few hours prior to arrival. She reports mild pain to the area but denies any drainage. Patient denies any trauma to this area. Patient has not had this before. - CONSTITUTIONAL Constitutional: DENIES: Fever, Chills - EENT EENT: DENIES: Sore Throat, Ear Pain, Eye problems - NEURO Neurology: DENIES: Headache, Weakness, Vision blurred, Dizzinesss / Vertigo - CARDIOVASCULAR Cardiovascular: DENIES: Chest pain - RESPIRATORY Respiratory: DENIES: Trouble Breathing, Coughing - GASTROINTESTINAL Gastrointestinal: DENIES: Abdominal Pain, Black / Bloody Stools - URINARY Urinary: DENIES: Dysuria, Urgency, Frequency - REPRODUCTIVE Reproductive: DENIES: : - MUSCULOSKELETAL Musculoskeletal: REPORTS: Extremity pain - Foot Past Medical History - General Information source: Patient - Social History Smoking Status: Never Smoker Family History: CAD, CVA, DM, Hyperlipidemia, Hypertension, Malignancy Patient has suicidal ideation: No Patient has homicidal ideation: No - Past Medical History Cardiac Medical History: Reports: Hx Hypercholesterolemia Denies: Hx Coronary Artery Disease, Hx Heart Attack, Hx Hypertension Pulmonary Medical History: Denies: Hx Asthma, Hx Bronchitis, Hx COPD, Hx Pneumonia Neurological Medical History: Reports: Hx Migraine. Denies: Hx Cerebrovascular Accident, Hx Seizures Endocrine Medical History: Reports: Hx Diabetes Mellitus Type 2 Renal/ Medical History: Denies: Hx Peritoneal Dialysis Musculoskeletal Medical History: Reports Hx Arthritis, Reports Hx Musculoskeletal Deformity, Reports Hx Musculoskeletal Trauma Traumatic Medical History: Reports: Hx Fractures - left ankle Past Surgical History: Reports: Hx Appendectomy, Hx Cholecystectomy, Hx Hysterectomy, Hx Orthopedic Surgery - left ankle left shoulder, left wrist, left elbow - Immunizations Immunizations up to date: Yes Hx Diphtheria, Pertussis, Tetanus Vaccination: Yes Hx Pneumococcal Vaccination: 04/24/11 Vertical Provider Document - CONSTITUTIONAL Notes: PHYSICAL EXAMINATION: GENERAL: Well-appearing, well-nourished and in no acute distress. HEAD: Atraumatic, normocephalic. EYES: Pupils equal round extraocular movements intact, conjunctiva are normal. ENT: Nares patent NECK: Normal range of motion LUNGS: No respiratory distress Musculoskeletal: Normal range of motion NEUROLOGICAL: Normal speech, normal gait. PSYCH: Normal mood, normal affect. SKIN: Warm, Dry, normal turgor, no rashes or lesions noted. Blister noted to dorsal surface of right foot near base of second toe. No surrounding erythema, induration or fluctuance. - INFECTION CONTROL TRAVEL OUTSIDE OF THE [place] IN LAST 30 DAYS: No Course - Re-evaluation Re-evalutation: Examination reveals what appears to be a blister to the dorsal surface of patient's right foot at the base of the second toe. There is no surrounding erythema. There is no tenderness on palpation. And instructed the patient that likely no additional workup is necessary and she shall allow the blister to dissolve on its own. I did instruct the patient that if she would like to she can apply warm compresses to the area. I also instructed her on signs of infection to watch for although I feel this is unlikely to include surrounding erythema, red streaking from the area or development of fever. - Vital Signs Vital signs: Temp Pulse Resp BP Pulse Ox 98.2 F 92 16 134/60 H 98 06/07/18 22:49 06/07/18 22:49 06/07/18 22:49 06/07/18 22:49 06/07/18 22:49 Discharge - Discharge Clinical Impression: Blister Condition: Stable Disposition: HOME, SELF-CARE Additional Instructions: Please apply warm compresses to the area 3-4 times daily. Allow the blister to drain on its own. Once the blister has popped you can try applying some triple antibiotic ointment to it to help the skin heal up. Follow-up with your primary care provider if not improving over the next 3-5 days. Referrals: WHITNEY JUNIOR DO [Primary Care Provider] - Follow up as needed
== END 2018-06-08 00:14 | disposition home or self-care (01) ==
LOC: ER 21:42
DX: S90.821A Blister (nonthermal), right foot, initial encounter (principal); X58.XXXA Exposure to other specified factors, initial encounter; E11.9 Type 2 diabetes mellitus without complications
CPT/HCPCS: 99283

== ENCOUNTER → 2018-08-06 | Outpatient (CLI) | payer OTHER ==
[2018-08-06 15:03] LABS: ALANINE AMINOTRANSFERASE 20 U/L (9-52); ALBUMIN 4.2 g/dL (3.5-5.0); ALKALINE PHOSPHATASE 84 U/L (38-126); ANION GAP 10 (5-19); ASPARTATE AMINO TRANSFERASE 17 U/L (14-36); BILIRUBIN,DIRECT 0.3 mg/dL (0.0-0.4); BILIRUBIN,TOTAL 0.4 mg/dL (0.2-1.3); BLOOD UREA NITROGEN 23 mg/dL (7-20); CALCIUM 9.8 mg/dL (8.4-10.2); CARBON DIOXIDE 25 mmol/L (22-30); CHLORIDE 104 mmol/L (98-107); CHOLESTEROL 132.38 mg/dL (0-200); GLUCOSE 208 mg/dL (75-110); POTASSIUM 4.8 mmol/L (3.6-5.0); SODIUM 139.3 mmol/L (137-145); TOTAL PROTEIN 7.3 g/dL (6.3-8.2); TRIGLYCERIDES 74 mg/dL (<150)
[2018-08-06 15:15] LABS: DIRECT LDL 63 mg/dL (<100)
[2018-08-08 11:38] LABS: CREATININE URINE 57.4 mg/dL (Not Estab.); MICROALBUMIN URINE <3.0 ug/mL (Not Estab.)
== END ==
LOC: LAB 14:27
PROVIDERS: ATTEND Family Medicine
DX: E11.9 Type 2 diabetes mellitus without complications (principal)
CPT/HCPCS: 36415; 80053; 80061; 82043; 82570; 83036

== ENCOUNTER → 2019-06-11 | Outpatient (CLI) | payer OTHER ==
--- NOTE | 2019-06-11 13:44 | WOMENS IMAGING REPORT ---
EXAM DESCRIPTION: BILAT SCREENING MAMMO W/CAD COMPLETED DATE/TIME: 06/11/2019 12:01 pm REASON FOR STUDY: Z12.31 SCREENING MAMMO Z12.31 ENCNTR SCREEN MAMMOGRAM FOR MALIGNANT NEOPLASM OF B RE COMPARISON: 05/18/2018, 02/13/2017 EXAM PARAMETERS: Standard craniocaudal and mediolateral oblique views of each breast recorded using digital acquisition. Read with the assistance of CAD. .FORMERLY [facility] - [email or web address] Version 9.2 LIMITATIONS: None. FINDINGS: No suspicious masses, suspicious calcifications or architectural distortion. No areas of c oncern. IMPRESSION: Negative MAMMOGRAM. BIRADS 1 BREAST DENSITY: b. There are scattered areas of fibroglandular density. BIRAD: ASSESSMENT: 1 NEGATIVE RECOMMENDATION: ROUTINE SCREENING COMMENT: The patient has been notified of the results by letter per MQSA requirements. Additional no tification policies are in place for contacting patient with suspicious or incomplete findings. Quality ID #[id number]: The [employer] recommends an annual screening mammogram for women aged 40 years or over. This facility utilizes a reminder system to ensure that all patients receive reminder letters, and/or direct phone calls for appointments. This includes reminders for routine scr eening mammograms, diagnostic mammograms, or other Breast Imaging Interventions when appropriate. Th is patient will be placed in the appropriate reminder system. TECHNICAL DOCUMENTATION: FINDING NUMBER: (1) ASSESSMENT: (1) JOB ID: [id number] 2010 [employer]- All Rights Reserved Reading location - IP/workstation name: [email or web address]
== END ==
LOC: WI 12:40
PROVIDERS: ATTEND Family Medicine
DX: Z12.31 Encounter for screening mammogram for malignant neoplasm of breast (principal)
CPT/HCPCS: 77067

== ENCOUNTER → 2019-07-16 | Outpatient (CLI) | payer OTHER ==
[2019-07-16 16:02] LABS: ABSOLUTE EOSINOPHILS # (AUTO) 0.1 10^3/uL (0.0-0.6); ABSOLUTE LYMPHOCYTES (AUTO) 1.7 10^3/uL (0.5-4.7); ABSOLUTE MONOCYTES (AUTO) 0.3 10^3/uL (0.1-1.4); ABSOLUTE NEUT (AUTO) 4.2 10^3/uL (1.7-8.2); BASOPHILS % (AUTO) 0.5 % (0-2); EOSINOPHILS % (AUTO) 1.2 % (0-6); HEMOGLOBIN 12.2 g/dL (12.0-15.5); LYMPHOCYTES % (AUTO) 27.2 % (13-45); MEAN CORPUSCULAR HEMOGLOBIN 29.2 pg (27.0-33.4); MEAN CORPUSCULAR HGB CONC 32.9 g/dL (32.0-36.0); MEAN CORPUSCULAR VOLUME 89 fl (80-97); MONOCYTES % (AUTO) 4.5 % (3-13); PLATELET COUNT 336 10^3/uL (150-450); RED BLOOD COUNT 4.17 10^6/uL (3.72-5.28); RED CELL DISTRIBUTION WIDTH 15.6 % (11.5-14.0); SEGMENTED NEUTROPHILS % (AUTO) 66.6 % (42-78); TOTAL CELLS COUNTED % (AUTO) 100 %; WHITE BLOOD COUNT 6.3 10^3/uL (4.0-10.5)
[2019-07-16 16:20] LABS: ALBUMIN 4.4 g/dL (3.5-5.0); ALKALINE PHOSPHATASE 81 U/L (38-126); ANION GAP 11 (5-19); ASPARTATE AMINO TRANSFERASE 21 U/L (14-36); BILIRUBIN,DIRECT 0.2 mg/dL (0.0-0.4); BILIRUBIN,TOTAL 0.4 mg/dL (0.2-1.3); BLOOD UREA NITROGEN 26 mg/dL (7-20); CALCIUM 9.5 mg/dL (8.4-10.2); CARBON DIOXIDE 27 mmol/L (22-30); CHLORIDE 100 mmol/L (98-107); CHOLESTEROL 127.05 mg/dL (0-200); GLUCOSE 141 mg/dL (75-110); POTASSIUM 4.9 mmol/L (3.6-5.0); TOTAL PROTEIN 7.6 g/dL (6.3-8.2); TRIGLYCERIDES 79 mg/dL (<150)
[2019-07-16 16:42] LABS: DIRECT LDL 53 mg/dL (<100)
[2019-07-16 16:49] LABS: FREE T3 3.53 pg/mL (2.77-5.27); FREE T4 (FREE THYROXINE) 1.07 ng/dL (0.78-2.19)
[2019-07-16 17:02] LABS: THYROID STIMULATING HORMONE 2.18 uIU/mL (0.47-4.68)
[2019-07-18 07:37] LABS: MICROALBUMIN URINE <3.0 ug/mL (Not Estab.)
== END ==
LOC: OD 15:26
PROVIDERS: ATTEND Family Medicine
DX: E11.9 Type 2 diabetes mellitus without complications (principal); E78.2 Mixed hyperlipidemia; I10 Essential (primary) hypertension; R79.89 Other specified abnormal findings of blood chemistry
CPT/HCPCS: 36415; 80053; 80061; 82043; 82570; 83036; 84439; 84443; 84481; 85025

== ENCOUNTER 2019-10-03 15:50 | Emergency (ER) | payer OTHER ==
[2019-10-03] MEDS ORDERED: ACETAMINOPHEN 325 MG TABLET PO ONE (16:49)
--- NOTE | 2019-10-03 16:51 | ER Document Report ---
ED Extremity Problem, Lower - General Chief Complaint: Knee Pain Stated Complaint: FALL/KNEE PAIN Time Seen by Provider: 10/03/19 16:46 Primary Care Provider: REDD HERNANDEZ JR, DO [ACTIVE PROVISIONAL STAFF] - Follow up as needed WHITNEY JUNIOR DO [Primary Care Provider] - Follow up as needed Mode of Arrival: Wheelchair Information source: Patient Notes: 64-year-old female presents to ED for complaint of pain to her left knee. She states she fell at work last night. She states she was working and went home went to bed and when she woke up this morning the knee was very swollen and it was hard to walk. She states she took her tramadol this morning and then she had her daughter bring her to the emergency room. She is alert oriented respirations regular and unlabored speaking in full sentences. Her left knee is swollen and very ecchymotic. TRAVEL OUTSIDE OF THE [place] IN LAST 30 DAYS: No - HPI Patient complains to provider of: Pain, Swelling Location: Knee - Left Occurred: Yesterday Where: Work Onset/Duration: Gradual, Worse Quality of pain: Sharp Recent injury: Yes Associated symptoms: Painful ambulation Exacerbated by: Hanging down, Movement, Walking Relieved by: Elevation, Ice, Rest - Related Data Allergies/Adverse Reactions: Sulfa (Sulfonamide Antibiotics) Allergy (Unknown, Verified 05/18/17 13:14) comatos aspirin Adverse Reaction (Verified 05/18/17 13:14) Urticaria, Irritability Past Medical History - General Information source: Patient - Social History Smoking Status: Never Smoker Frequency of alcohol use: None Drug Abuse: None 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 Lives with: Family Family History: CAD, CVA, DM, Hyperlipidemia, Hypertension, Malignancy - Past Medical History Cardiac Medical History: Reports: Hx Hypercholesterolemia Pulmonary Medical History: Reports: None EENT Medical History: Reports: None Neurological Medical History: Reports: Hx Migraine Endocrine Medical History: Reports: Hx Diabetes Mellitus Type 2 Renal/ Medical History: Reports: None Malignancy Medical History: Reports: None GI Medical History: Reports: None Musculoskeletal Medical History: Reports Hx Arthritis, Reports Hx Musculoskeletal Deformity, Reports Hx Musculoskeletal Trauma Skin Medical History: Reports None Psychiatric Medical History: Reports: None Traumatic Medical History: Reports: Hx Fractures - left ankle Infectious Medical History: Reports: None Past Surgical History: Reports: Hx Appendectomy, Hx Cholecystectomy, Hx Hysterectomy, Hx Orthopedic Surgery - left ankle left shoulder, left wrist, left elbow - Immunizations Immunizations up to date: Yes Hx Diphtheria, Pertussis, Tetanus Vaccination: Yes Hx Pneumococcal Vaccination: 04/24/11 Review of Systems - Review of Systems Constitutional: No symptoms reported EENT: No symptoms reported Cardiovascular: No symptoms reported Respiratory: No symptoms reported Gastrointestinal: No symptoms reported Genitourinary: No symptoms reported Female Genitourinary: No symptoms reported Musculoskeletal: Joint pain, Joint swelling - Left knee Skin: No symptoms reported Hematologic/Lymphatic: No symptoms reported Neurological/Psychological: No symptoms reported -: Yes All other systems reviewed and negative Physical Exam - Vital signs Vitals: Temp Pulse Resp BP Pulse Ox 99.4 F 105 H 20 125/69 98 10/03/19 16:09 10/03/19 16:09 10/03/19 16:09 10/03/19 16:09 10/03/19 16:09 Interpretation: Normal - General General appearance: Appears well, Alert - HEENT Head: Normocephalic, Atraumatic Eyes: Normal Pupils: PERRL - Respiratory Respiratory status: No respiratory distress Chest status: Nontender Breath sounds: Normal Chest palpation: Normal - Cardiovascular Rhythm: Regular Heart sounds: Normal auscultation Murmur: No - Abdominal Inspection: Normal Distension: No distension Bowel sounds: Normal Tenderness: Nontender Organomegaly: No organomegaly - Back Back: Normal, Nontender - Extremities General upper extremity: Normal inspection, Nontender, Normal color, Normal ROM, Normal temperature General lower extremity: Normal temperature. No: Nidia's sign Knee: Tender, Ecchymosis, Pain with ROM, Patellar tendon intact, Tender joint line - Neurological Neuro grossly intact: Yes Cognition: Normal Orientation: AAOx4 [place] Coma Scale Eye Opening: Spontaneous Rachelle Coma Scale Verbal: Oriented [place] Coma Scale Motor: Obeys Commands Rachelle Coma Scale Total: 15 Speech: Normal Motor strength normal: LUE, RUE, LLE, RLE Sensory: Normal - Psychological Associated symptoms: Normal affect, Normal mood - Skin Skin Temperature: Warm Skin Moisture: Dry Skin Color: Normal Course - Re-evaluation Re-evalutation: 10/03/19 17:42 Discussed x-ray with patient and written report of x-ray given to patient. No dislocation or fractures noted on x-ray but there was a small joint effusion. Knee is ecchymotic and swollen and very tender to palpation. She did have tenderness to all areas of the knee. She will be treated with a knee immobilizer and crutches and she has been given instructions for following up with orthopedics. - Vital Signs Vital signs: Temp Pulse Resp BP Pulse Ox 99.4 F 104 H 16 142/71 H 98 10/03/19 17:41 10/03/19 17:41 10/03/19 17:41 10/03/19 17:41 10/03/19 17:41 - Diagnostic Test Radiology reviewed: Image reviewed, Reports reviewed Procedures - Immobilization Left Knee Time completed: 17:45 Pre-Proc Neuro Vasc Exam: Normal Immobilizer type: Crutches, Knee immobilizer Performed by: ELSIE Post-Proc Neuro Vasc Exam: Normal Alignment checked and good: Yes Discharge - Discharge Clinical Impression: Effusion, left knee Left knee injury Qualifiers: Encounter type: initial encounter Qualified Code(s): S89.92XA - Unspecified injury of left lower leg, initial encounter Condition: Stable Disposition: HOME, SELF-CARE Additional Instructions: SUSPECTED INTERNAL KNEE INJURY: The examiner of your injured knee suspects an internal injury to the cartilage or internal ligaments. This must be further investigated by an orthopedic assistant. The knee should be protected, ice packed, and elevated while awaiting your follow-up exam by the orthopedist. If there is severe swelling, severe pain, or any new symptoms while awaiting your exam, you should call the orthopedist. (If he/she is unavailable, call us or return for re-examination.) KNEE IMMOBILIZING SPLINT: The knee immobilizing splint will protect the injury while healing begins. This type of splint does not allow the knee to bend at all. No running or sports will be possible. If the splint allows painfree walking, it's giving adequate protection. If there is still significant pain, crutches may be needed as well. Don't do anything that hurts. Adjusted the splint, if necessary. The stiffeners on the sides are attached with Velcro, so they can be easily moved to adjust for thigh and calf size. If you need help with these adjustments, come back. You will lose muscle strength in the thigh while using this splint. The doctor will advise you if it's safe to do isometric knee exercises while you use it. USE OF CRUTCHES: The doctor has recommended that you not bear weight at this time. You will need to use crutches. Adjust the crutches so the tops come to about two inches under the armpit while you are standing upright. Use your hands -- not your armpits -- to support your weight. To get into a chair, support yourself with one crutch on the injured side. Hold the chair with the other hand, then lower yourself while putting all your weight on the good leg. Going up stairs is `good leg up, step up, then bring up crutches and bad leg.' Down stairs is `bad leg and crutches down, then bring good leg down.' If you develop numbness or swelling in an arm or hand, you are using the crutches incorrectly. Return if you are having any problems with the crutches. ICE & ELEVATION: Apply ice packs frequently against the painful area. Many different schedules are recommended, such as "20 minutes on, 20 minutes off" or "one hour ice, two hours rest." If you need to work, you may need to go longer between ice treatments. You should plan to have the area ice packed AT LEAST one-fourth of the time. The ice should be applied over the wrap, tape, or splint, or over a layer of cloth -- not directly against the skin. Some ice bags have a built-in cloth and can be put directly on the skin. Your injured part should be elevated as much as possible over the next 48 hours. Try to keep the injury above the level of the heart. Avoid use of the injured area. Elevation and rest will decrease the swelling. Acetaminophen Acetaminophen may be taken for pain relief or fever control. It's much safer than aspirin, offering a wider range of "safe" dosages. It is safe during . Some brand names are Tylenol, Panadol, Datril, Anacin 3, Tempra, and Liquiprin. Acetaminophen can be repeated every four hours. The following are maximum recommended dosages: WEIGHT Dose Drops Elixir Chewable(80mg) (LBS.) drprs=droppers tsp=teaspoon 6 40 mg .4 ml (1/2) 6-11 80 mg .8 ml (full) 1/2 tsp 1 tab 12-16 120 mg 1 1/2 drprs 3/4 tsp 1 1/2 tabs 17-23 160 mg 2 drprs 1 tsp 2 tabs 24-30 240 mg 3 drprs 1 1/2 tsp 3 tabs 30-35 320 mg 2 tsp 4 tabs 36-41 360 mg 2 1/4 tsp 4 1/2 tabs 42-47 400 mg 2 1/2 tsp 5 tabs 48-53 480 mg 3 tsp 6 tabs 54-59 520 mg 3 1/4 tsp 6 1/2 tabs 60-64 560 mg 3 1/2 tsp 7 tabs 65-70 600 mg 3 3/4 tsp 7 1/2 tabs 71-76 640 mg 4 tsp 8 tabs 77-82 720 mg 4 1/2 tsp 9 tabs 83-88 800 mg 5 tsp 10 tabs >89 pounds or adults 650 mg to 900 mg Acetaminophen can be repeated every four hours. Maximum daily dose not to exceed 4000 mg. These maximum recommended dosages are slightly higher than the dosages written on the product container, but these dosages are very safe and well below the toxic dosage for acetaminophen. FOLLOW-UP CARE: If you have been referred to a physician for follow-up care, call the physicians office for an appointment as you were instructed or within the next two days. If you experience worsening or a significant change in your symptoms, notify the physician immediately or return to the Emergency Department at any time for re-evaluation. Forms: Special Work Note, Return to Work Referrals: WHITNEY JUNIOR DO [Primary Care Provider] - Follow up as needed REDD HERNANDEZ JR, DO [ACTIVE PROVISIONAL STAFF] - Follow up as needed
--- NOTE | 2019-10-03 17:37 | RADIOLOGY REPORT (SQ) ---
EXAM DESCRIPTION: KNEE LEFT 4 VIEW IMAGES COMPLETED DATE/TIME: 10/03/2019 5:13 pm REASON FOR STUDY: Fell last night pain left knee COMPARISON: None. NUMBER OF VIEWS: Four views. TECHNIQUE: AP, lateral, and both oblique radiographic images acquired of the left knee. LIMITATIONS: None. FINDINGS: MINERALIZATION: Normal. BONES: No acute fracture or dislocation. No worrisome bone lesions. JOINT: Small joint effusion. SOFT TISSUES: No soft tissue swelling. No radio-opaque foreign body. OTHER: No other significant finding. IMPRESSION: Small joint effusion. No acute osseous abnormality. TECHNICAL DOCUMENTATION: JOB ID: [id number] 2010 [employer]- All Rights Reserved Reading location - IP/workstation name: [email or web address]
[2019-10-03 17:42] VITALS: BP 142/71
== END 2019-10-03 17:48 | disposition home or self-care (01) ==
LOC: ER 15:50
DX: S89.92XA Unspecified injury of left lower leg, initial encounter (principal); M25.462 Effusion, left knee; M25.562 Pain in left knee; M79.89 Other specified soft tissue disorders; W19.XXXA Unspecified fall, initial encounter; E11.9 Type 2 diabetes mellitus without complications; Z88.2 Allergy status to sulfonamides; Z88.8 Allergy status to other drugs, medicaments and biological substances
CPT/HCPCS: 99283

== ENCOUNTER → 2020-01-22 | Outpatient (CLI) | payer OTHER ==
--- NOTE | 2020-01-22 15:06 | RADIOLOGY REPORT (SQ) ---
EXAM DESCRIPTION: MRI LT LOWER JOINT WITHOUT IMAGES COMPLETED DATE/TIME: 01/22/2020 11:39 am REASON FOR STUDY: M25.562 PAIN IN LEFT KNEE M25.562 PAIN IN LEFT KNEE . Left knee pain since September, getting worse over the past month. Fell in September after leg gave out. Patient has persistent giving out an instability, left leg pain and weakness. Diabetes. Fell in September 2019. COMPARISON: Left knee radiograph, 10/03/2019. TECHNIQUE: Left knee images acquired and stored on PACS. Multiplanar images include fat sensitive s equences as T1, water sensitive sequences as FST2 or STIR, cartilage sensitive sequences as FSPD, and gradient echo sequences. LIMITATIONS: None. FINDINGS: JOINT AND BURSAE: Small knee joint effusion. BONE CORTEX AND MARROW: There is an ill-defined T2 hyperintense, T1 mixed hypointense and isointense lesion within the metaphysis of the proximal tibia. Along the anterior margin, there appears to be c ortical disruption with associated periosteal reaction (series 8, image 15, series 7, image 15, and s eries 5 image 24). This has areas of linear and curvilinear T1 hypointensity and a focus of T1 right , T2 dark signal suggestive of tract intramedullary fat. On radiograph, this corresponds with an ill -defined lucency in the proximal tibial metaphysis not well delineated on radiograph. No definitive cortical buttressing. The distal femur and fibula are intact with normal bone marrow signal. ACL: Intact. No degeneration or ganglion cyst. PCL: Intact. MCL: Intact. No periligamentous edema or fluid. LCL: Intact. No periligamentous edema or fluid. MEDIAL MENISCUS: No tears. No abnormal signal. LATERAL MENISCUS: No tears. No abnormal signal. MEDIAL COMPARTMENT: There is mild thinning of the articular cartilage with no underlying bone marrow abnormality. LATERAL COMPARTMENT: Mild thickening and increased signal in the articular cartilage. No underlying bone marrow signal abnormality. PATELLA: There is denuded areas of cartilage at the medial patellar facet. No underlying bone marrow signal abnormality. Thinning of the articular cartilage at the lateral facet. No intra-articular l oose body. EXTENSOR MECHANISM: Intact. Quadriceps and patella tendons normal. SOFT TISSUES: Adjacent muscles and subcutaneous tissues normal. Normal flow void in popliteal artery and vein. OTHER: No other significant finding. IMPRESSION: 1. Intramedullary lesion within the proximal tibial metaphysis. Finding is suggestive of a chondrosa rcoma, however chronic osteomyelitis/Farhat's abscess could have this appearance. Further evaluation with contrast-enhanced MRI of the knee is recommended for complete characterization. 2. Moderate patellofemoral osteoarthritis. COMMENT: Findings discussed with MELODY Conley on 01/22/2020 at 1455 hours Eastern time TECHNICAL DOCUMENTATION: JOB ID: [id number] 2010 [employer]- All Rights Reserved Reading location - IP/workstation name: [email or web address]
== END ==
LOC: RAD 11:53
PROVIDERS: ATTEND Physician Assistant
DX: M17.12 Unilateral primary osteoarthritis, left knee (principal); M25.562 Pain in left knee

== ENCOUNTER → 2020-01-29 | Outpatient (CLI) | payer OTHER ==
--- NOTE | 2020-01-30 14:16 | RADIOLOGY REPORT (SQ) ---
EXAM DESCRIPTION: MRI LT LOWER JOINT WITH IMAGES COMPLETED DATE/TIME: 01/29/2020 6:20 pm REASON FOR STUDY: (M25.562)PAIN IN LEFT KNEE COMPARISON: 01/22/2020 TECHNIQUE: Fat sat T1 pre and postcontrast left knee. CONTRAST TYPE AND DOSE: 20 cc ProHance. RENAL FUNCTION: Not indicated. LIMITATIONS: None. FINDINGS: There is heterogeneous enhancement within the previously described lesion in the proximal tibial diaphysis. Suggestion of some blooming artifact noted on the study 01/22/2020. IMPRESSION: Cannot exclude chondrosarcoma. COMMENT: Consider Orthopedic Oncology referral. TECHNICAL DOCUMENTATION: JOB ID: [id number] 2010 [employer]- All Rights Reserved Reading location - IP/workstation name: [email or web address]
== END ==
LOC: RAD 16:38
PROVIDERS: ATTEND Physician Assistant
DX: M25.562 Pain in left knee (principal)
CPT/HCPCS: 82565; 73722; A9576

== ENCOUNTER → 2020-03-09 | Outpatient (CLI) | payer OTHER ==
--- NOTE | 2020-03-11 10:21 | RADIOLOGY REPORT (SQ) ---
EXAM DESCRIPTION: MRI RT UPPER JOINT WITHOUT IMAGES COMPLETED DATE/TIME: 03/09/2020 4:33 pm REASON FOR STUDY: M25.511 PAIN IN RIGHT SHOULDER M25.511 PAIN IN RIGHT SHOULDER COMPARISON: None. TECHNIQUE: Right shoulder images acquired and stored on PACS. Multiplanar imaging to include fat sen sitive sequences such as T1, water sensitive sequences such as FST2/STIR, cartilage sensitive sequenc es such as FSPD/gradient-echo sequences. LIMITATIONS: Motion artifact. FINDINGS: BONE MARROW AND CORTEX: No worrisome bone lesions or marrow replacement. No occult fractur es. JOINT OR BURSAL EFFUSION: No significant joint or bursal fluid. No suggestion of loose bodies. GLENO-HUMERAL ARTICULATION: Intact. Mild arthropathy. ACROMION AND AC JOINT: Type 2 acromion. Moderate AC joint arthropathy. ROTATOR CUFF AND INTERVAL: Tendinosis without significant tear. No rotator interval tear. No rotator interval thickening to suggest adhesive capsulitis. LABRUM AND BICEPS LABRAL COMPLEX: Intact as visualized. Distal biceps very attenuated REMAINDER OF LABRUM AND IGHL : Intact. PERIARTICULAR AND ADJACENT SOFT TISSUES: No masses or abnormal nodes. OTHER: No other significant finding. IMPRESSION: No significant cuff tear identified. AC and glenohumeral joint arthropathy. TECHNICAL DOCUMENTATION: JOB ID: [id number] 2010 [employer]- All Rights Reserved Reading location - IP/workstation name: [email or web address]
== END ==
LOC: RAD 15:49
PROVIDERS: ATTEND Physician Assistant
DX: M25.511 Pain in right shoulder (principal)